=== PATIENT | female | born 1955 | race Caucasian/White ===

== ENCOUNTER → 2017-07-12 | Outpatient (CLI) | payer OTHER ==
--- NOTE | 2017-07-17 09:31 | RADIOLOGY IMAGING REPORT ---
FACILITY: [facility] [place] PATIENT NAME: RAFAL SANDERS : [id number] MR: [id number] V: [id number] EXAM DATE: [id number] ORDERING PHYSICIAN: DEONDRE ECHEVERRIA TECHNOLOGIST: Terra Hauser PROCEDURE:BILATERAL DIGITAL SCREENING MAMMOGRAM WITH CAD AND 3D BREAST TOMOSYNTHESIS. COMPARISON:05/28/16, 05/03/15, 04/15/12. INDICATIONS:SCREENING FINDINGS: There are scattered fibroglandular parenchymal densities. The asymmetries in the posterior upper outer aspect of the right breast are stable. No new mammographic findings concerning for malignancy. DIAGNOSTIC CATEGORY 2--BENIGN FINDING. RECOMMENDATIONS: ROUTINE MAMMOGRAM AND CLINICAL EVALUATION. IMPRESSION: Bi-RADS 2: Benign finding. RECOMMENDATION: Followup screening mammogram in one year. Dictated by: Saravanan Petersen on 07/15/2017 at 9:24 Transcribed by: LOPEZ on 07/15/2017 at 22:29 Approved by: Janae Patel M.D. on 07/17/2017 at 8:49 [facility]
== END ==
LOC: MAMO 04:20
PROVIDERS: ATTEND Nurse Practitioner Family
DX: Z12.31 Encounter for screening mammogram for malignant neoplasm of breast (principal)
CPT/HCPCS: 77063; 77067